=== PATIENT | female | born 1985 | race Caucasian/White ===

== ENCOUNTER 2019-02-06 05:10 | Inpatient (IN) | payer OTHER, SELFPAY ==
[2019-02-06] VITALS (20 sets, daily range): BP systolic 118–141; BP diastolic 59–86; PULSE 70–102; RESP 12–18; TEMP 36.1–37.1; O2SAT 95–100; BMI 30.5
[2019-02-06] MEDS: Lactated Ringers 1,000 ML 999 ML IV (05:30)
[2019-02-06 05:59] LABS: Absolute Lymphocyte Count 2.22 X10^3/uL (0.83-4.51); Absolute Neutrophil Count 6.8 X10^3/uL (2.0-7.7); Basophil# 0.03 X10^3/uL; Basophil% 0.3 % (0-1); Eosinophil# 0.08 X10^3/uL; Eosinophils% 0.8 % (0-5); Hemoglobin 11.7 g/dL (12.0-15.0); Lymphocyte # 2.22 X10^3/ul (4.0); Lymphocyte % 22.6 % (19-41); Mean Corp Hgb Conc 33.4 g/dL (32-36); Mean Corpuscular Hgb 31.5 pg (27.0-32.0); Mean Corpuscular Volume 94.1 fL (81-99); Monocyte# 0.62 X10^3/uL; Monocyte% 6.3 % (0-10); NRBC Flagged by Analyzer 0 % (0-5); Neutrophil % 69.4 % (47-70); Platelet Count 222 K/mm3 (150-450); RBC Distribution Width CV 12.8 % (11.6-14.6); Red Blood Count 3.72 M/mm3 (4.2-5.4); White Blood Count 9.8 K/mm3 (4.4-11.0)
[2019-02-06] MEDS: Sodium Citrate/Citric Acid 30 ML UDC PO (07:13)
--- NOTE | 2019-02-06 07:20 | OP.PCM_ITS ---
Report of Operation Date of Procedure: 02/06/19 Description of Surgical Findings:: Normal maternal uterus and ovaries property management bookkeeper: Olimpia Majano Fluids Replaced: 1200ml Delivery Classification: Scheduled Final KAMRYN: 02/13/19 Gestational age: 39 Weeks and 0 Days Type of Anesthesia:: Spinal Date of Procedure: 02/06/19 Pre-Operative Diagnosis: Prior section Post-Operative Diagnosis: Same Indications for : Repeat Elective Description of Procedure: Patient taken to OR where spinal anesthesia was placed. She was prepped and draped in normal sterile fashion in a dorsal supine position with a leftward tilt. After ensuring adequacy of anesthesia the Pfannensteil skin incision was made and carried through to the underlying fascia w/ a bovie. The fascia was incised in the midline and carried laterally with the Guerra scissors. The rectus muscles were in the midline and the peritoneum was entered bluntly. The bladder flap was dissected down with the Metzenbaum scissors and blunt dissection. The uterine incision was made with the scalpel and extended laterally w/ blunt dissection. The fetus was vertex and the head was brought to the incision in the flexed position. With good fundal pressure the head delivered. The head was gently guided to allow delivery of anterior & posterior shoulders. No excess traction placed on head. Body delivered easily. The cord was clamped and cut after 1 minute delay and the infant handed off to waiting RN. The placenta was delivered w/ gentle traction and fundal massage and the uterus was exteriorized and cleared of all clots and debris. The uterine incision was closed with 1 vicryl suture in a running locked fashion. A second layer monocryl was used to imbricate the first layer and obtain hemostasis. The uterus was returned to the peritoneal cavity which was cleared of all clots and debris. Pelvis was irrigated. The uterine incision was reexamined and found to be hemostatic. The parietal peritoneum was reapproximated with running 1 vicryl figure suture. The fascia was closed with looped PDS suture in a running standard fashion. The subcutaneous tissue was examined, any bleeding bovie cauterized. The subcutaneous tissue was reapproximated with 3-0 vicryl suture. The skin was closed in a subcuticular fashion by the NEIGHBORHOOD PLANNER with me present in the labor and delivery suite. I performed the remainder of the procedure w/ assistance. Amniotic Membrane Rupture Type: Artificial Amniotic Fluid Description: Clear Placenta Disposition: [facility] Drain: Ray to straight drain Cord Entanglement: None Cord Vessel Description: 3 Vessels Esitmated Blood Loss (ml): 700ml Infant Gender: Female - Denisse, weight 7-15 (1 minute): 9 (5 minute): 10 Delayed cord clamping: Yes Antibiotic Given: Ancef 2 grams IV x1
--- NOTE | 2019-02-06 07:23 | PCM.HP.OB ---
History Date of Admission: 02/06/19 Final KAMRYN: 02/13/19 Gestational age: 39 Weeks and 0 Days History of this : This is a 33 year-old, G [], P [], at 39 weeks gestational age. Medical History: Medical History (Last Updated 02/06/19 @ 05:56 by Kaye Resendez) Migraines G43.909 Surgical History: Surgical History (Last Updated 02/06/19 @ 05:56 by Kaye Resendez) S/P LASIK surgery of both eyes Z98.890 Allergies No Known Allergies Allergy (Verified 02/06/19 05:24) Home Medications: Home Medications Ferrous Sulfate [Iron] 325 mg PO DAILY 02/06/19 Pnv No.95/Ferrous Fum/Folic AC [ Caplet] 1 ea PO DAILY 02/06/19 Smoking Status: Never smoker History Past Pregnancies: Past Pregnancies Delivery Date Name GA/Weeks Outcome Route Weight Infant Gender Labor Length Anesthesia Delivery Location Provider FOB Assessment/Plan This is a 33 year-old, G 2, P 1001, at 39 weeks gestational age. Please see [facility] H&P - no changes
[2019-02-06] MEDS: Cefazolin 2 GM in 0.9% Normal Saline 100 ML IV (07:28)
[2019-02-06] MEDS: Oxytocin 30 units/NS 500 ml 30 UNITS/500 ML IV.SOLN 167 UNITS IV (09:05)
[2019-02-06] MEDS: Ondansetron 4 MG/2 ML Vial IV (10:28)
[2019-02-06] MEDS: Lactated Ringers 1,000 ML 100 ML IV ×2 (12:50→21:59)
[2019-02-06] MEDS: proCHLORPERazine 10 MG/2 ML Vial IV (13:56)
[2019-02-06] MEDS: Ketorolac 30 MG/ML Syringe IV ×2 (14:13→20:51)
[2019-02-06] MEDS: 0.9% Saline Lock 10 ML Syringe IV ×2 (14:15→20:51)
--- NOTE | 2019-02-06 15:18 | CPS ---
left in room for nursing to start
[2019-02-06] MEDS: Acetaminophen 500 MG Tablet 1000 MG PO (18:10)
--- NOTE | 2019-02-06 20:03 | NURSING ---
Indwelling urinary catheter present. WNL
--- NOTE | 2019-02-06 21:30 | NURSING ---
Patient up at bedside. Stood up and pad was changed. Ambulated in place and then ambulated around the room. Gait steady. Tolerated well. Patient back in bed with call light in reach. Denies further needs at this time.
[2019-02-07] VITALS (9 sets, daily range): BP systolic 102–125; BP diastolic 52–83; PULSE 75–99; RESP 16–18; TEMP 36.7–37.1; O2SAT 18–99
[2019-02-07] MEDS: 0.9% Saline Lock 10 ML Syringe IV (02:40)
[2019-02-07] MEDS: Ketorolac 30 MG/ML Syringe IV (02:40)
[2019-02-07 05:18] LABS: Hematocrit 30.3 % (37-47); Hemoglobin 10.3 g/dL (12.0-15.0); Mean Corpuscular Hgb 32.5 pg (27.0-32.0); Mean Corpuscular Volume 95.6 fL (81-99); Mean Platelet Vol. 9.9 fl (6.2-12.0); Platelet Count 186 K/mm3 (150-450); RBC Distribution Width CV 13.2 % (11.6-14.6); RBC Distribution Width SD 45.9 fl (35.1-43.9); Red Blood Count 3.17 M/mm3 (4.2-5.4); White Blood Count 12.7 K/mm3 (4.4-11.0)
--- NOTE | 2019-02-07 09:15 | PCM.PN.OB ---
Subjective: No complaints - Physical Exam General: Alert, Oriented x3 Abdomen: Soft, Non Tender, Non-Distended - ff mid & below umb; inc - bandage c/d/i Extremities: No Calf Tenderness Vital Signs Temp Pulse Resp BP Pulse Ox 98.8 F 99 18 102/53 L 97 02/07/19 04:00 02/07/19 06:00 02/07/19 06:00 02/07/19 04:00 02/07/19 06:00 Oxygen Delivery Method Room Air Weight: 167 lb Body Mass Index (BMI) 30.5 Intake and Output for Last 24 Hours 02/05/19 02/06/19 02/07/19 23:59 23:59 23:59 Intake Total 4520.00 / 4520.00 710 / 710 Output Total 2024 / 2024 800 / 800 Balance 2495.00 / 2495.00 -90 / -90 Laboratory Tests Past 24 Hrs 02/07/19 05:00 WBC 12.7 H RBC 3.17 L Hgb 10.3 L Hct 30.3 L MCV 95.6 MCH 32.5 H MCHC 34.0 RDW Std Deviation 45.9 H RDW Coeff of Lilian 13.2 Plt Count 186 MPV 9.9 Medical Necessity - Tobacco Use Smoking Status: Never smoker Assessment/Plan POD#1 Heme - HDS, cbc reviewed GI - ADAT - adequate UOP Routine care
[2019-02-07] MEDS: Ibuprofen 600 MG Tablet PO ×2 (09:54→16:46)
[2019-02-07] MEDS: Senna/Docusate Sodium 1 Tablet PO (09:54)
[2019-02-07] MEDS: Acetaminophen 500 MG Tablet 1000 MG PO (12:10)
[2019-02-07] MEDS: oxyCODONE 5 MG Tablet PO ×2 (13:52→20:35)
[2019-02-08] MEDS: oxyCODONE 5 MG Tablet PO ×3 (02:16→07:29)
[2019-02-08 02:17] VITALS: BP 108/71; PULSE 96; RESP 16; TEMP 36.6
--- NOTE | 2019-02-08 07:14 | PCM.PN.OB ---
Subjective: Seen at bedside, doing well. Patient reports good pain control. Lochia is mild. Breast-feeding. Voiding without difficulty. Denies any other concerns today. - Physical Exam General: Alert, Oriented x3 Abdomen: Soft, Non-Distended, - - Fundus firm. Incision dressing dry and intact Extremities: No Calf Tenderness Vital Signs Temp Pulse Resp BP Pulse Ox 97.8 F 96 16 108/71 97 02/08/19 02:02/08/19 02:02/08/19 02:02/08/19 02:02/07/19 20:40 Oxygen Delivery Method Room Air Weight: 75.75 kg Body Mass Index (BMI) 30.5 Intake and Output for Last 24 Hours 02/06/19 02/07/19 02/08/19 23:59 23:59 23:59 Intake Total 4520.00 / 4520.00 710 / 710 Output Total 2024 / 2024 1950 / 1950 Balance 2495.00 / 2495.00 -1240 / -1240 Medical Necessity - Tobacco Use Smoking Status: Never smoker Assessment/Plan Postop day #2, status post section doing well DC home today Routine care Pain management
--- NOTE | 2019-02-08 07:15 | PCM.DC.BLA ---
Discharge Summary Date of Admission: 02/06/19 Date of Discharge: 02/08/19 Summary: Patient admitted to [facility] on 02/06/2019 for scheduled repeat section performed by Dr. Debbie Terrell. Patient had an uncomplicated postoperative course with a stable hemoglobin and hematocrit. She was discharged home on postoperative day 2 on 02/08/2019 - Physical Exam Vital Signs Temp Pulse Resp BP Pulse Ox 97.8 F 96 16 108/71 97 02/08/19 02:17 02/08/19 02:02/08/19 02:02/08/19 02:02/07/19 20:40 Oxygen Delivery Method Room Air Weight: 75.75 kg Body Mass Index (BMI) 30.5 Intake and Output for Last 24 Hours 02/06/19 02/07/19 02/08/19 23:59 23:59 23:59 Intake Total 4520.00 / 4520.00 710 / 710 Output Total 2024 / 2024 1950 / 1950 Balance 2495.00 / 2495.00 -1240 / -1240
--- NOTE | 2019-02-08 07:19 | DCINST_ITS ---
Discharge Diet: No Restrictions Discharge Activity: Return to Normal Activity, May Not Drive - for 2 weeks, May not drive while taking narcotic pain medications., May Shower, May Take a Tub Bath - in 7 days. May resume sexual activity in: 4-6 weeks Lifting Restrictions: 20 pounds Additional Activity Instructions:: Nothing in the vagina for 4-6 weeks. You may return to work/school in 6 weeks. Call your doctor if your incision/area has: Continuous Slow Oozing, Sudden Increased Bleeding, Increased Pain/ Swelling, Increased Redness, Foul Smelling Discharge Call your doctor if you observe: Fever of 101 or Higher, Using more than one pad per hour - for 2 hours Suture Line Care: Avoid Pulling/Pushing, Avoid Pinching/Bending Cleanse incision/area with: Keep Dressing Clean & Dry Additional Instructions: If you experience any of the following, contact your healthcare provider. * Bleeding that soaks a pad every hour for 2 hours * Fever 100.4 or higher * Unrelieved incision or abdominal pain * Swelling, redness, discharge or bleeding from your incision or episiotomy site * Your incision begins to separate * Problems urinating (including inability to urinate or burning while urinating). * Visual changes * Severe headache * Flu-like symptoms * Pain or redness in one of both of your breasts * Pain, warmth, tenderness or swelling in your legs, especially the calf area * Frequent nausea and vomiting * Symptoms of depression or anxiety If you experience any of the following, call 911 or go to the nearest Emergency Room. * Chest pain * Problems breathing * Seizure activity * Partial or complete paralysis of a body part, slurred speech, weakness or drooping of the face, or a sudden inability to walk or hold your balance Allergies/Adverse Reactions: Allergies No Known Allergies Allergy (Verified 02/06/19 05:24) Medications to take at Discharge Ferrous Sulfate [Iron] 325 mg PO DAILY 02/06/19 Pnv No.95/Ferrous Fum/Folic AC [ Caplet] 1 ea PO DAILY 02/06/19 Ibuprofen [Motrin] 600 mg PO Q6H PRN PRN #60 tab 02/08/19 Oxycodone HCl/Acetaminophen [Percocet 5/325] 1 tab PO Q6H PRN PRN 7 Days #20 tab 02/08/19 Senna/Docusate Sodium [Senokot-S] 1 tab PO DAILY PRN #30 tab 02/08/19 SimETHICONE [Mylicon] 80 mg PO PCHS PRN #30 tab 02/08/19 The following prescriptions were given: Ibuprofen [Motrin] 600 mg PO Q6H PRN PRN #60 tab PRN Reason: Mild Pain (1-08/04) Transmission Status: Pending to [facility] SimETHICONE [Mylicon] 80 mg PO PCHS PRN #30 tab PRN Reason: Indigestion/stomach pain Transmission Status: Pending to [facility] Oxycodone HCl/Acetaminophen [Percocet 5/325] 1 tab PO Q6H PRN PRN 7 Days #20 tab PRN Reason: Pain Prescription Printed Senna/Docusate Sodium [Senokot-S] 1 tab PO DAILY PRN #30 tab PRN Reason: Constipation Transmission Status: Pending to [facility] Follow-Up: Call to make an appointment with your doctor for an incision check in 1-2 weeks. You will also need a 6 week post- follow up appointment. Test results from this visit will be discussed in further detail at your follow- up appointment, if applicable. Please Follow Up With: Tia Thompson MD - Call to make an appointment for an incision check in 1-2 [phone] When: You will need a post- check in 6 weeks. Primary Care Physician: Jeison Hines III, MD [Primary Care Provider] -
[2019-02-08 07:32] VITALS: BP 120/75; PULSE 91; RESP 16; TEMP 37.3; O2SAT 99
[2019-02-08] MEDS: Ferrous Sulfate 325 MG Tablet PO (09:42)
[2019-02-08] MEDS: Ibuprofen 600 MG Tablet PO (09:42)
[2019-02-08 12:16] VITALS: BP 110/68; PULSE 70; RESP 16; TEMP 37.2; O2SAT 99
== END 2019-02-08 12:10 | disposition home or self-care (01) | DRG 788 ==
PROVIDERS: Admitting Provider Obstetrics & Gynecology; Family Provider Family Medicine; PCP Family Medicine; Referring Provider Obstetrics & Gynecology; Visit Provider Obstetrics & Gynecology
PROC: 10D00Z1 Extraction of Products of Conception, Low, Open Approach (ICD-10-PCS; CPT 59514; principal; 2019-02-06 07:15)
DX: O34.219 Maternal care for unspecified type scar from previous cesarean delivery (principal); Z3A.39 39 weeks gestation of pregnancy; Z37.0 Single live birth
CPT/HCPCS: 85025; 85027; 86850; 86900; 86901; 99218; J7120; A4216; G0378; J2405

== ENCOUNTER → 2021-01-26 20:29 | Outpatient (CLI) | payer OTHER, SELFPAY | PROVIDERS: Visit Provider Physician Assistant | DX: R52 Pain, unspecified (principal) | CPT/HCPCS: 87635; U0005; U0003 ==